=== PATIENT | male | born 1970 ===

== ENCOUNTER → 2022-01-09 09:38 | Outpatient (BNVA) | payer SELFPAY | PROVIDERS: Family Provider Family Medicine; PCP Family Medicine; Visit Provider Specialist | DX: M25.511 Pain in right shoulder (principal) | CPT/HCPCS: 73030 ==

== ENCOUNTER 2024-05-14 11:57 | Outpatient (CLI) | payer OTHER, SELFPAY ==
--- NOTE | 2024-05-14 | ECG_ITS ---
[facility] 2024[facility]14 Pat Name: Carroll Garza Department: Room: Gender: Male Rand Sewer: : 1970 Requested By: Oralia Kuo Order Number: [id number] Gerardo MD: Morena Carter M.D. Interpretive Statements Lung unchanged pre/post procedure; Intraprocedure shortess of breath; Symptoms resoled by discharge PROCEDURE: At the baseline, the patient's blood pressure was 160/83 with a heart rate of 90. The baseline electrocardiogram showed normal sinus rhythm with normal ST-Ts.. The patient exercised for 9 minutes on a standard Jonh protocol. Patient attained a maximum heart rate of 152 beats per minute(91% of the maximum predicted heart rate) with a blood pressure at the peak exercise of 195/108 mm Hg. The EKG at the peak exercise revealed some nonspecific ST-T changes. Patient did not have any chest pain or any significant cardiac arrhythmias with the exercise During the recovery phase, there were no new changes. Blood pressure at the end of the recovery phase was 191/90 mm Hg with a heart rate of 102 per minute. The EKG reverted back to baseline CONCLUSION: 1. Nonspecific EKG response to treadmill exercise 2. No exercise-induced chest pain or cardiac arrhythmia 3. Fair exercise tolerance, attained a maximum of 10.2 METs 4. No significant coronary ischemia, based on the above Electronically Signed On 05-14-2024 14:03:19 CDT by Morena Carter M.D. [email or web address]
[2024-05-14 12:07] VITALS: BMI 24.1
[2024-05-14 13:05] VITALS: BP 186/68; PULSE 99
== END 2024-05-14 11:58 | disposition home or self-care (01) ==
LOC: CDL 12:04
PROVIDERS: Family Provider Family Medicine; PCP Family Medicine; Visit Provider Nurse Practitioner Family
DX: I50.9 Heart failure, unspecified (principal); E78.2 Mixed hyperlipidemia; R07.9 Chest pain, unspecified
CPT/HCPCS: 93017

== ENCOUNTER 2024-08-01 20:38 | Emergency (ER) | payer OTHER, SELFPAY ==
[2024-08-01 20:43] VITALS: BP 137/86; PULSE 81; RESP 16; TEMP 36.7; O2SAT 98; BMI 24.4
--- NOTE | 2024-08-01 21:18 | CTR_ITS ---
PROCEDURE INFORMATION: Exam: CT Abdomen And Pelvis With Contrast Exam date and time: 08/01/2024 9:36 PM Age: 54 years old Clinical indication: Abdominal pain; C/O epigastric pain TECHNIQUE: Imaging protocol: Computed tomography of the abdomen and pelvis with contrast. Radiation optimization: All CT scans at this facility use at least one of these dose optimization techniques: automated exposure control; mA and/or kV adjustment per patient size (includes targeted exams where dose is matched to clinical indication); or iterative reconstruction. Contrast material: OMNI 350; Contrast volume: 100 ml; Contrast route: INTRAVENOUS (IV); COMPARISON: No relevant prior studies available. RADIATION DOSE METRICS: Total DLP (mGy-cm): 501.64 FINDINGS: Lungs: Bibasilar atelectasis versus minimal infiltrate. Emphysematous changes. Liver: Normal. No mass. Gallbladder and biliary ducts: Normal. No calcified stones. No ductal dilation. Pancreas: Normal. No ductal dilation. Spleen: Normal. No splenomegaly. Adrenal glands: Normal. No mass. Kidneys and ureters: Left kidney punctate nonobstructing calyceal stones. Left kidney punctate nonobstructing calyceal stones. Bilateral renal cysts, negative for follow up advised. Stomach and bowel: Prominent fluid in the stomach and small bowel, please correlate for a gastroenteritis. Appendix: No evidence of appendicitis. Intraperitoneal space: Unremarkable. No free air. No significant fluid collection. Vasculature: Unremarkable. No abdominal aortic aneurysm. Lymph nodes: Unremarkable. No enlarged lymph nodes. Urinary bladder: Urinary bladder wall thickening likely due to nondistention. Please correlate for cystitis. Reproductive: Nodular prostate gland enlargement please correlate clinically. Bones/joints: Unremarkable. No acute fracture. Soft tissues: Unremarkable. CT/CT abdomen pelvis w con* [id number] IMPRESSION: 1. Prominent fluid in the stomach and small bowel, please correlate for a gastroenteritis. 2. Left kidney punctate nonobstructing calyceal stones. 3. Urinary bladder wall thickening likely due to nondistention. Please correlate for cystitis. 4. Nodular prostate gland enlargement please correlate clinically. 5. Bibasilar atelectasis versus minimal infiltrate. 6. Emphysematous changes. 7. Left kidney punctate nonobstructing calyceal stones. 8. Bilateral renal cysts, negative for follow up advised.
--- NOTE | 2024-08-01 21:21 | W.ED.ABDPA2 ---
HPI - Abdominal Pain General: Chief Complaint: Abdominal Pain Stated Complaint: abd pain Time Seen by Provider: 08/01/24 20:52 History of Present Illness: Patient comes in with abdominal pain. States for the past hour and a half he has had right upper quadrant/epigastric abdominal pain which he describes as sharp, waxes and wanes, denies fever, nausea, vomiting, or diarrhea. He states that it does not radiate. Denies any history of similar pain. The patient states that he has been drinking daily for the past a while but that he dumped all of his beer out today to stop. On physical exam he has epigastric tenderness to palpation. Will check labs, CT abdomen pelvis with IV contrast, give IV fluids, treat pain with 2 mg of IV morphine, and reassess. Associated Symptoms: Denies fever(s) Related Data Previous Rx's ?Medication ?Instructions ?Recorded meloxicam 15 mg tablet 15 mg PO DAILY #30 tabs 01/09/22 Allergies Allergy/AdvReac Type Severity Reaction Status Date / Time No Known Allergies Allergy Verified 01/09/22 09:53 Review of Systems Const: Denies: fever(s) or body aches Eyes: Denies: change in vision or blurry vision ENMT: Denies: throat pain or odynophagia Card: Denies: chest pain or palpitations Resp: Denies: dyspnea or productive cough GI: Reports: abdominal pain Musc: Denies: neck pain or back pain Skin/Breast: Denies: rash or pruritus Physical Exam Const: COMMON NORMALS: no acute distress and healthy appearing HENMT: COMMON NORMALS: normocephalic and atraumatic HEAD & SCALP: normocephalic and atraumatic Neck/C-Spine: COMMON NORMALS: full ROM and supple Resp: COMMON NORMALS: normal respiratory effort, No retractions and No use of accessory muscles Cardio: COMMON NORMALS: regular rate and regular rhythm RATE: regular rate RHYTHM: regular rhythm GI: OTHER: Epigastric/right upper quadrant tenderness to palpation Extremity: COMMON NORMALS: normal to inspection and full ROM Skin: COMMON NORMALS: no rashes or lesions noted and no wounds GENERAL SKIN EXAM: no rashes or lesions noted Course Vital Signs: Vital signs: Vital Signs Temperature 98.1 F 08/01/24 20:43 Pulse Rate 81 08/01/24 20:43 Respiratory Rate 17 08/01/24 21:55 Blood Pressure 137/86 08/01/24 20:43 Pulse Oximetry 98 08/01/24 20:43 Oxygen Delivery Me thod Room Air 08/01/24 20:43 MDM - Abdominal Pain Medical Decision Making On reassessment I talked to the patient about his test results. His blood work shows a mildly elevated white blood cell count. His CT is concerning for gastroenteritis versus gastritis. I suspect he probably has an alcoholic gastritis secondary to his alcohol. His gallbladder is unremarkable. Will give him a GI cocktail. We discussed symptoms that should prompt immediate return to the emergency department. Will discharge at this time with precautions to return for worsening or changing symptoms. Lab Data 08/01/24 21:27 08/01/24 21:27 Labs/Radiology: Radiology Impressions Abdomen/Pelvis CT 08/01/24 21:18 IMPRESSION: 1. Prominent fluid in the stomach and small bowel, please correlate for a gastroenteritis. 2. Left kidney punctate nonobstructing calyceal stones. 3. Urinary bladder wall thickening likely due to nondistention. Please correlate for cystitis. 4. Nodular prostate gland enlargement please correlate clinically. 5. Bibasilar atelectasis versus minimal infiltrate. 6. Emphysematous changes. 7. Left kidney punctate nonobstructing calyceal stones. 8. Bilateral renal cysts, negative for follow up advised. Laboratory Results WBC 11.64 10^3/uL (3.29-11.43) H 08/01/24 21:27 RBC 5.70 10^6/uL (3.85-5.65) H 08/01/24 21:27 Hgb 17.20 g/dL (11.27-16.99) H 08/01/24 21:27 Hct 50.6 % (37-53) 08/01/24 21:27 MCV 88.8 fl (82-101) 08/01/24 21:27 MCH 30.2 pg (27-33) 08/01/24 21: MCHC 34.0 g/dL (30-55) 08/01/24 21:27 RDW 12.2 % (12.1-15.1) 08/01/24 21:27 Plt Count 291 10^3/cmm (157-399) 08/01/24 21: MPV 11.5 fL (7.4-10.4) H 08/01/24 21:27 Neut % (Auto) 65.1 % 08/01/24 21: Lymph % (Auto) 24.9 % 08/01/24 21: Whitley % (Auto) 7.9 % 08/01/24 21: Eos % (Auto) 1.5 % 08/01/24: Baso % (Auto) 0.3 % 08/01/24: Neut # (Auto) 7.58 10^3/uL (1.8-7.7) 08/01/24 21: Lymph # (Auto) 2.9 10^3/uL (0.8-4.8) 08/01/24: Whitley # (Auto) 0.9 10^3/uL (0.2-0.9) 08/01/24 21: Eos # (Auto) 0.2 10^3/uL (0.0-0.8) 08/01/24: Baso # (Auto) 0.0 10^3/uL (0.0-0.1) 08/01/24: Nucleated RBC % (auto) 0 % 08/01/24: Nucleated RBCs # 0.0 /100WBC 08/01/24 21: Sodium 135 mmol/L (136-145) L 08/01/24: Potassium 4.6 mmol/L (3.5-5.1) 08/01/24: Chloride 99 mmol/L (98-107) 08/01/24: Carbon Dioxide 24 mmol/L (22-29) 08/01/24: Anion Gap 16.6 (5-19) 08/01/24: BUN 17 mg/dL (6-20) 08/01/24: Creatinine 0.9 mg/dL (0.7-1.2) 08/01/24: GFR Calculation 88.3 mL/min (90-130) L 08/01/24 21: Glucose 101 mg/dL (65-115) 08/01/24: Calculated Osmolality 282 mOsm/kg (285-295) L 08/01/24: Calcium 9.1 mg/dL (8.5-10.5) 08/01/24 21:27 Total Bilirubin 0.4 mg/dL (0.15-1.2) 08/01/24 21:27 AST 21 U/L (0-40) 08/01/24 21:27 ALT 24 U/L (0-41) 08/01/24 21:27 Alkaline Phosphatase 80 U/L (40-130) 08/01/24 21:27 Total Protein 7.5 g/dL (6.6-8.7) 08/01/24 21:27 Albumin 4.5 g/dL (3.5-5.2) 08/01/24 21:27 Globulin 3.0 g/dL (1.3-4.6) 08/01/24 21:27 Lipase 33 U/L (13-60) 08/01/24 21:27 All radiology interpretation(s) finalized by discharge Discharge Plan Discharge Patient Disposition: Home Clinical Impression: Gastritis and duodenitis Condition: Stable Prescriptions: No Action meloxicam 15 mg tablet 15 mg PO DAILY Qty: 30 0RF Rx Instructions: take 1 tablet once daily Discharge Orders: Discharge ED (Routine); Ordered 08/01/24 Ordered By: Ronaldo Zhang Referrals: Abhay Diez [Primary Care Provider, Family Practice] Patient Instructions: Gastritis (ED), Diet for Stomach Ulcers and Gastritis (ED), Pain Management Print Language: Mauritanian Coding Level of Care Code ED Mid Level Net Developer for Kaz Romano
[2024-08-01] MEDS: iohexol 350 mg/mL 500 mL Btl (per mL) IV (21:36)
[2024-08-01 21:50] LABS: Basophils % 0.3 %; Eosinophils # 0.2 10^3/uL (0.0-0.8); Eosinophils % 1.5 %; Hematocrit 50.6 % (37-53); Lymphocytes # 2.9 10^3/uL (0.8-4.8); Lymphocytes % 24.9 %; Mean Corpuscular Hemoglobin 30.2 pg (27-33); Mean Corpuscular Volume 88.8 fl (82-101); Mean Platelet Volume 11.5 fL (7.4-10.4); Monocytes # 0.9 10^3/uL (0.2-0.9); Monocytes % 7.9 %; Neutrophils # 7.58 10^3/uL (1.8-7.7); Neutrophils % 65.1 %; Nucleated Red Blood Cells % 0 %; Platelet Count 291 10^3/cmm (157-399); Red Cell Distribution Width 12.2 % (12.1-15.1); White Blood Count 11.64 10^3/uL (3.29-11.43)
[2024-08-01 21:55] VITALS: RESP 17
[2024-08-01] MEDS: sodium chloride 0.9% 1,000 ML 999 ML IV (21:55)
[2024-08-01] MEDS: morphine 4 mg/mL SDV 1 mL 2 MG IVP ×2 (21:55→23:00)
[2024-08-01 22:05] LABS: Alanine Aminotransferase 24 U/L (0-41); Albumin Level 4.5 g/dL (3.5-5.2); Alkaline Phosphatase 80 U/L (40-130); Anion Gap 16.6 (5-19); Aspartate Amino Transferase 21 U/L (0-40); Blood Urea Nitrogen 17 mg/dL (6-20); Calcium 9.1 mg/dL (8.5-10.5); Carbon Dioxide 24 mmol/L (22-29); Chloride 99 mmol/L (98-107); Creatinine Clr Calc Pharmacy 106.3586; Glomerular Filtration Rate 88.3 mL/min (90-130); Glucose 101 mg/dL (65-115); Lipase 33 U/L (13-60); Osmolality Calculated 282 mOsm/kg (285-295); Potassium 4.6 mmol/L (3.5-5.1); Sodium 135 mmol/L (136-145); Total Bilirubin 0.4 mg/dL (0.15-1.2); Total Protein 7.5 g/dL (6.6-8.7)
[2024-08-01 22:15] VITALS: BP 124/70; PULSE 70; RESP 17; O2SAT 97
[2024-08-01 23:00] VITALS: RESP 18
[2024-08-01] MEDS: lidocaine 2% viscous 15 ML, aluminum-mag hydrox-simethicon 30 ML, sucralfate oral liq 1 GM PO (23:01)
[2024-08-01 23:23] VITALS: BP 123/80; PULSE 75; RESP 16; O2SAT 96
== END 2024-08-01 23:15 | disposition home or self-care (01) ==
PROVIDERS: Emergency Provider Emergency Medicine; PCP Family Medicine
DX: K29.70 Gastritis, unspecified, without bleeding (principal); K29.80 Duodenitis without bleeding
CPT/HCPCS: 36415; 74177; 80053; 83690; 85025; 96361; 96374; 96376; 99285; J2270; J7030; J9999